=== PATIENT | male | born 1945 | race African-American/Black ===

== ENCOUNTER 2021-01-17 14:31 | Emergency (ER) | payer MEDICARE ==
--- NOTE | 2021-01-17 17:27 | Emergency Department Report ---
ED Male HPI - General Chief complaint: Urogenital-Male Stated complaint: CANT PEE Time Seen by Provider: 01/17/21 16:48 Source: patient, family Mode of arrival: Ambulatory Limitations: No Limitations - History of Present Illness Initial comments: 75-year-old male presents to the emergency room with complaints of inability to urinate since 11 PM last night. Patient had had a cystoscopy ureteroscopy with laser lithotripsy and stent placement yesterday at the urology of [facility] Dr. Shailesh Dowling. He states that initially he had small amount of bloody urine but then eventually he stopped urinating. After the procedure he was prescribed Bactrim Flomax and tramadol for pain. Patient has a past medical history of diabetes hypertension and asthma. He is in no acute distress but he is uncomfortable from his abdominal distention and inability to void -: During the night (since 11pm) Improves with: none recent surgery urinary retention. denies: swelling, mass, dysuria, fever, nausea/vomiting, incontinence - Related Data Home Medications Medication Instructions Recorded Confirmed Last Taken Metoprolol [Lopressor TAB] 50 mg PO DAILY 09/09/15 09/11/15 09/11/15 Omeprazole [PriLOSEC] 20 mg PO QDAY 09/09/15 09/11/15 09/11/15 Dicyclomine [Bentyl] 20 mg PO Q6H 09/11/15 09/11/15 09/11/15 Previous Rx's Medication Instructions Recorded Last Taken Type HYDROcodone/APAP 5-325 [[place] 1 each PO Q6H PRN #14 tablet 09/12/15 Unknown Rx 5-325 mg TAB] levoFLOXacin [Levaquin TAB] 500 mg PO QDAY #5 tablet 09/12/15 Unknown Rx Allergies Allergy/AdvReac Type Severity Reaction Status Date / Time No Known Allergies Allergy Verified 09/08/15 10:41 ED Review of Systems ROS: Stated complaint: CANT PEE Other details as noted in HPI Comment: All other systems reviewed and negative Constitutional: no symptoms reported. denies: chills, fever, malaise, other ENT: denies: ear pain, throat pain, dental pain, hearing loss, epistaxis Respiratory: denies: cough, shortness of breath, wheezing Cardiovascular: denies: chest pain, palpitations, dyspnea on exertion, edema, syncope, paroxysmal nocturnal dyspnea Endocrine: denies: excessive sweating, flushing, intolerance to cold, intoler ance to heat, increased hunger, increased thirst Gastrointestinal: other (Abdominal discomfort and distention) Genitourinary: hematuria, other (Urinary retention) Skin: denies: rash, lesions Neurological: denies: headache, weakness Psychiatric: denies: anxiety, depression ED Past Medical Hx - Past Medical History Previous Medical History?: Yes Hx Hypertension: Yes (+ hyperlipidemia) Hx Heart Attack/AMI: No Hx Congestive Heart Failure: No Hx Renal Disease: No Hx Seizures: No Hx Asthma: No - Surgical History Past Surgical History?: Yes Additional Surgical History: umbilical hernia repair 2016 - Social History Smoking Status: Never Smoker Substance Use Type: None - Medications Home Medications: Home Medications Medication Instructions Recorded Confirmed Last Taken Type Metoprolol [Lopressor TAB] 50 mg PO DAILY 09/09/15 09/11/15 09/11/15 History Omeprazole [PriLOSEC] 20 mg PO QDAY 09/09/15 09/11/15 09/11/15 History Dicyclomine [Bentyl] 20 mg PO Q6H 09/11/15 09/11/15 09/11/15 History HYDROcodone/APAP 5-325 [[place] 1 each PO Q6H PRN #14 tablet 09/12/15 Unknown Rx 5-325 mg TAB] levoFLOXacin [Levaquin TAB] 500 mg PO QDAY #5 tablet 09/12/15 Unknown Rx ED Physical Exam - General Limitations: No Limitations General appearance: alert, in no apparent distress - Head Head exam: Present: atraumatic - Eye Eye exam: Present: normal appearance - ENT ENT exam: Present: normal exam - Neck Neck exam: Present: normal inspection - Respiratory Respiratory exam: Present: normal lung sounds bilaterally - Cardiovascular Cardiovascular Exam: Present: regular rate, normal heart sounds - GI/Abdominal GI/Abdominal exam: Present: distended - exam: Present: other (Bladder distention bladder scan 376 mL) External exam: Present: normal external exam - Extremities Exam Extremities exam: Present: normal inspection - Back Exam Back exam: Present: normal inspection - Neurological Exam Neurological exam: Present: alert, oriented X3 - Psychiatric Psychiatric exam: Present: normal affect - Skin Skin exam: Present: warm, dry, intact ED Course Vital Signs 01/17/21 14:48 Temperature 98.7 F Pulse Rate 78 Respiratory 18 Rate Blood Pressure 123/65 [Right] O2 Sat by Pulse 92 Oximetry - Reevaluation(s) Reevaluation #1: 01/17/21 18:03 16-gauge Valdovinos catheter inserted by nurse with only scant amount of bloody urine drained. I called [facility] at [phone]. I spoke to the on-call urologist Dr. Ruiz. Dr. Graham recommends a three-way catheter #22 with irrigation. Once Valdovinos catheter is draining properly and patient has relief patient he discharged home with a indwelling Valdovinos catheter and follow-up with urology of [facility] on Tuesday. I discussed this plan with patient and his daughter. Reevaluation #2: 01/17/21 18:36 Valdovinos irrigated with 500 cc of normal saline by RN small amount of clots removed Valdovinos catheter now draining dark tea colored urine with ease patient reports feeling comfortable we will not do the three-way Valdovinos catheter at this time as the #16 [place] Valdovinos catheter is draining adequately 700 cc of urine is in the drainage bag. I discussed the plan with patient and his daughter leg bag will be placed patient is to follow-up with urologist on Tuesday he is to drink lots of fluids and continue all his medication as prescribed which includes Bactrim Flomax tramadol for pain and all his usual home meds. ED Medical Decision Making - Lab Data Result diagrams: 01/17/21 16:44 01/17/21 16:44 - Medical Decision Making 75-year-old male status post your cystoscopy ureteroscopy lithotripsy on 01/16/[address] Shailesh Dowling. Patient presents to the ER stating that since 11 PM yesterday he was not able to void. Number 16-gauge Valdovinos catheter inserted irrigated with 500 cc of normal saline then patient voided 700 cc of dark tea colored urine. I spoke to Dr. Ruiz who is the on-call urologist at urology [facility] and patient will be able to follow-up on Tuesday with the urologist. Patient is to continue Bactrim Flomax tramadol increase oral hydration and take all his usual medications. Patient is accompanied by his daughter instructions also given to her she is aware that if urine stops flowing and patient become uncomfortable or if he develops any fever or any worsening symptoms he is to return to the emergency room immediately otherwise he is to follow-up with his urologist on Tuesday. I discussed treatment and plan of care with Dr. Hitesh Rdz and he agrees - Differential Diagnosis Urinary retention, UTI, hematuria Critical Care Time: No Critical care attestation.: If time is entered above; I have spent that time in minutes in the direct care o f this critically ill patient, excluding procedure time. ED Disposition Clinical Impression: Urinary retention Disposition: DC- TO HOME OR SELFCARE Is pt being admited?: No Does the pt Need Aspirin: No Condition: Stable Instructions: Acute Urinary Retention, Male, [id number], Indwelling Urinary Catheter Care, Adult Additional Instructions: Follow up with your urologist on Tuesday Dr. Kenyon Dowling . Continue taking Bactrim Flomax and tramadol as prescribed by your urologist. Continue taking y our all usual home meds as prescribed. Drink plenty fluids at least 6 to 8 glasses/day. Keep yourself well-hydrated. If your Valdovinos catheter stopped draining for more than 2 hours or if you develop worsening pain fever chills please report to the emergency room immediately. Otherwise follow-up with your urologist on Tuesday. If you are concerned with constipation please feel free to use magnesium citrate or any other [id number] laxative that your pharmacist recommends you can purchased at the pharmacy and take as directed by the package insert Referrals: PRIMARY MD AMADOU [Primary Care Provider] - 3-5 Days Time of Disposition: 18:41
[2021-01-17 17:37] LABS: Basophils # (Auto) 0.1 K/mm3 (0.0-0.1); Basophils % (Auto) 0.5 % (0.0-1.8); Eosinophils # (Auto) 0.4 K/mm3 (0.0-0.4); Hematocrit 39.7 % (35.5-45.6); Hemoglobin 12.8 gm/dl (11.8-15.2); Lymphocytes % (Auto) 13.5 % (13.4-35.0); Mean Corpuscular HGB Conc 32 % (32-34); Mean Corpuscular Volume 75 fl (84-94); Monocytes # (Auto) 1.3 K/mm3 (0.0-0.8); Platelet Count 318 K/mm3 (140-440); Red Blood Count 5.32 M/mm3 (3.65-5.03); Red Cell Distribution Width 15.1 % (13.2-15.2)
[2021-01-17 18:00] LABS: Albumin 3.9 g/dL (3.9-5); Calcium 8.8 mg/dL (8.4-10.2)
[2021-01-17] MEDS ORDERED: SODIUM CHLORIDE 0.9% IRR 500 ML BOTTLE IR ONE (18:10)
[2021-01-17 18:56] LABS: Bacteria,Urine 1+ /HPF (Negative); Bilirubin,Urine NEG (Negative); Blood,Urine LG (Negative); Color,Urine Amber (Yellow)
[2021-01-17 19:07] LABS: RBC,Urine > 182.0 /HPF (0.0-6.0)
[2021-01-17 20:10] VITALS: BP 130/78
== END 2021-01-17 19:45 | disposition home or self-care (01) ==
LOC: ED 14:31
DX: R33.9 Retention of urine, unspecified (principal); I10 Essential (primary) hypertension; Z98.890 Other specified postprocedural states; Z79.899 Other long term (current) drug therapy
CPT/HCPCS: 36415; 51702; 80053; 81001; 85025; 87086